=== PATIENT | female | born 1990 | race Caucasian/White ===

== ENCOUNTER 2020-04-29 14:00 | Outpatient (RCR) | payer MEDICARE, SELFPAY ==
[2020-02-13 09:04] VITALS: BMI 35.5
[2020-04-29 13:56] VITALS: BMI 33.5
[2020-04-29 13:58] VITALS: BMI 33.5
== END 2020-05-05 14:02 | disposition home or self-care (01) ==
LOC: ANHDMC 14:00
DX: E11.9 Type 2 diabetes mellitus without complications (principal); Z71.3 Dietary counseling and surveillance; Z71.89 Other specified counseling; Z68.35 Body mass index [BMI] 35.0-35.9, adult
CPT/HCPCS: 97803; G0108

== ENCOUNTER 2020-06-03 14:59 | Outpatient (RCR) | payer MEDICARE, SELFPAY | END 2020-06-03 17:34 | disposition home or self-care (01) | LOC: ANHDMC 14:59 | DX: E11.65 Type 2 diabetes mellitus with hyperglycemia (principal); Z71.89 Other specified counseling | CPT/HCPCS: G0108 ==

== ENCOUNTER 2023-01-26 00:50 | Emergency (ER) | payer MEDICARE, SELFPAY ==
[2023-01-26 00:53] VITALS: BP 192/97; PULSE 91; RESP 16; TEMP 36.5; O2SAT 99
[2023-01-26 01:09] LABS: Glucose Point of Care 397 mg/dl (65-105)
[2023-01-26 01:18] LABS: Basophils Absolute Auto 0.1 K/mm3 (0.0-0.1); Basophils Percent Auto 0.8 % (0.2-1.2); Eosinophils Absolute Auto 0.3 K/mm3 (0-0.3); Eosinophils Percent Auto 2.4 % (0-4.4); Hematocrit 43.7 % (37.0-47.0); Hemoglobin 14.6 g/dL (12.0-15.0); Immature Granulocyte Absolute 0.05 K/mm3 (0.00-0.031); Immature Granulocyte Percent A 0.4 % (0-0.5); Lymphocytes Absolute Auto 4.34 K/mm3 (0.9-3.2); Lymphocytes Percent Auto 35.9 % (18.3-44.2); Mean Corpuscular HGB Conc 33.4 g/dl (32-36); Mean Corpuscular Hemoglobin 27.6 pg (26-34); Mean Corpuscular Volume 82.6 fl (80-100); Mean Platelet Volume 10.4 fl (7.4-10.4); Monocytes Absolute Auto 0.9 K/mm3 (0.1-0.6); Monocytes Percent Auto 7.3 % (2.6-8.5); Neutrophils Absolute Auto 6.4 K/mm3 (1.3-6.7); Neutrophils Percent Auto 53.2 % (45.5-73.1); Platelet Count Result 350 k/mm3 (150-375); Red Blood Count 5.29 M/mm3 (4.2-5.4); Red Cell Distribution Width 13.3 % (11.5-14.5); White Blood Count 12.1 K/mm3 (4.5-10.0)
[2023-01-26 01:30] LABS: Alanine Aminotransferase 30 U/L (6-35); Albumin Level 4.5 g/dL (3.5-5.1); Alkaline Phosphatase 79 U/L (38-126); Anion Gap 16 mmol/L (8-16); Aspartate Amino Transferase 25 U/L (14-36); Bilirubin,Total 0.4 mg/dL (0.2-1.3); Blood Urea Nitrogen 14 mg/dL (7-17); Calcium 9.2 mg/dL (8.4-10.2); Carbon Dioxide 21 mmol/L (22-30); Chloride 99 mmol/L (98-107); Estimated Glomerular Filt Rate > 60; Glucose 402 mg/dL (65-110); Potassium 3.8 mmol/L (3.4-5.0); Sodium 136 mmol/L (137-145)
--- NOTE | 2023-01-26 01:45 | PC.NURSE ---
pt sts that she has been to several different hospitals for the same c/c. Pt LWBS last night from [facility]. Pt seems to be looking for a new endocrine Dr. labs sent and urine sent
[2023-01-26] MEDS: INSULIN HUMAN REGULAR (*BKC) 100 UNITS/ML 10 UNITS SUB-Q (02:04)
[2023-01-26] MEDS: LACTATED RINGERS 1,000 ML 999 ML IV CONT ×2 (02:04→02:53)
[2023-01-26 02:12] LABS: Beta-Hydroxybutyrate/Acetoacetate 0.56 mmol/L (0.02-0.27)
[2023-01-26 02:20] LABS: Appearance Urine Cloudy (Clear); Bacteria Urine 1+ /hpf; Bilirubin Urine Negative (Negative); Blood Urine Negative (Negative); Color Urine Yellow (Yellow); Glucose Urine UA 3+ mg/dL (Negative); Ketones Urine 2+ mg/dL (Negative); Leukocyte Esterase Ur Negative LEU/UL (Negative); Need Manual Microscopic Reviewed; Nitrate Urine Negative (Negative); Non Pathogenic Casts 0-2; Protein Urine Negative (Negative); RBC Urine 0-2 /hpf (0-2); Squamous Epithelial Cell Urine Moderate /hpf (Few); Urobilinogen Urine 0.2 mg/dL (<2.0); WBC Urine 21-50 /hpf; pH Urine 5.5 (5.0-9.0)
[2023-01-26 02:21] LABS: Add Urine Microscopic? YES; Specific Grav Ur 1.042 (1.001-1.035)
--- NOTE | 2023-01-26 02:56 | ED.RECABL ---
HPI - Recheck/Abnormal Lab/Rx General Chief Complaint: Recheck/Abnormal Lab/Rx Stated Complaint: high blood sugar Time Seen by Provider: 01/26/23 01:02 History of Present Illness HPI narrative: 32yoF h/o DM on insulin who had new medication adjustment and now off and has elevated blood sugars. Last seen at [facility] the day before for similar symptoms for which she got fluids, insulin. She reports feeling quite thirsty and going to the bathroom frequently Related Data Allergies Allergy/AdvReac Type Severity Reaction Status Date / Time No Known Allergies Allergy Verified 01/26/23 01:59 Review of Systems Review of Systems: CONST: No fever. HEENT: Thirsty C/V: No chest pain RESP: No cough GI: No abdominal pain but has nausea : Increased frequency M/S: No joint pain. SKIN: No rash. NEURO: [No headache or focal numbness or weakness] PSYCH: [No depression] [facility] Social History Social History (System 07/31/21 @ 13:08 by Angie Soler) Spiritual care concerns: No Exam Narrative: EXAMINATION OF ORGAN SYSTEMS/BODY AREAS: Constitutional: Vital signs per nursing GENERAL:[No acute distress, non-toxic appearing.] HEAD: Normal with no signs of head trauma. EYES: EOMI, conjunctiva normal ENT: Hearing grossly intact LUNGS: Nonlabored breathing. HEART: [Regular rate and rhythm] ABD: [Soft], [nontender to palpation] EXT: Normal range of motion SKIN: [No rashes or lesions.] NEURO: [Alert and oriented x 3. No gross focal sensory or strength deficits.] PSYCH: Normal affect Course Vital Signs Vital signs: Vital Signs Temperature 97.7 F 01/26/23 00:53 Pulse Rate 91 01/26/23 00:53 Respiratory Rate 16 01/26/23 00:53 Blood Pressure 192/97 H 01/26/23 00:53 Pulse Oximetry 99 01/26/23 00:53 Oxygen Delivery Room Air 01/26/23 00:53 Temperature 97.7 F 01/26/23 00:53 Pulse Rate 91 01/26/23 00:53 Respiratory Rate 16 01/26/23 00:53 Blood Pressure 192/97 H 01/26/23 00:53 Pulse Oximetry 99 01/26/23 00:53 Oxygen Delivery Room Air 01/26/23 00:53 MDM - Recheck/Abnormal Lab/Rx MDM Narrative Medical decision making narrative: Patient presenting with high blood sugar with some nausea, vital signs within acceptable limits other than hypertension here, I will obtain labs to rule out DKA. Labs notable for slightly elevated white count, bicarb and anion gap within acceptable limits, therefore I do not think she is in DKA, she does have some ketones and her urine does appear consistent with a UTI and I suspect that may be what is causing her symptoms. She is hydrated here with fluids, antibiotics are started, dose of insulin provided, on reevaluation she is feeling much better and agreeable to discharge with return precautions. I have given her follow-up with endocrinology here given her dissatisfaction with her current doctor Lab Data 01/26/23 01:13 01/26/23 01:13 Labs: Lab Results 01/26/23 01/26/23 01/26/23 Range/Units 01:06 01:13 01:56 WBC 12.1 H (4.5-10.0) K/mm3 RBC 5.29 (4.2-5.4) M/mm3 Hgb 14.6 (12.0-15.0) g/dL Hct 43.7 (37.0-47.0) % MCV 82.6 (80-100) fl MCH 27.6 (26-34) pg MCHC 33.4 (32-36) g/dl RDW 13.3 (11.5-14.5) % Plt Count 350 (150-375) k/mm3 MPV 10.4 (7.4-10.4) fl Immature Gran % (Auto) 0.4 (0-0.5) % Neut % (Auto) 53.2 (45.5-73.1) % Lymph % (Auto) 35.9 (18.3-44.2) % [place] % (Auto) 7.3 (2.6-8.5) % Eos % (Auto) 2.4 (0-4.4) % Baso % (Auto) 0.8 (0.2-1.2) % Lymph # (Auto) 4.34 H (0.9-3.2) K/mm3 [place] # (Auto) 0.9 H (0.1-0.6) K/mm3 Eos # (Auto) 0.3 (0-0.3) K/mm3 Baso # (Auto) 0.1 (0.0-0.1) K/mm3 Abs Immat Gran (auto) 0.05 H (0.00-0.031) K/mm3 Absolute Neuts (auto) 6.4 (1.3-6.7) K/mm3 Absolute Nucleated RBC 0.0 (0.0-0.012) K/mm3 Nucleated RBC % 0.0 (0.0-0.2) % Sodium 136 L (137-145) mmol/L Potassium 3.8 (3.4-5
--- NOTE | 2023-01-26 04:16 | PC.NURSE ---
pt refused and sts, I have it on my phone.
--- NOTE | 2023-02-04 14:56 | PC.NURSE ---
LATE ENTRY This note is being entered to document information to the patient's record. The following information was omitted on [01/26/23], by [Jennifer Hernandez RN]. LR 1 Liter infused at 1445, LR 2nd liter infused at 0250. Ceftriaxone infused at 1530.
== END 2023-01-26 04:24 | disposition home or self-care (01) ==
PROVIDERS: Emergency Provider Emergency Medicine
DX: E11.65 Type 2 diabetes mellitus with hyperglycemia (principal); N39.0 Urinary tract infection, site not specified; Z79.4 Long term (current) use of insulin
CPT/HCPCS: 36415; 80053; 81001; 82010; 82948; 85025; 87086; 87088; 96361; 96365; 99284; J0696; J1815; J7120